=== PATIENT | female | born 1965 | race Caucasian/White ===

== ENCOUNTER 2016-11-24 05:06 | Emergency (ER) | payer MEDICARE, OTHER ==
[~2016-11-24] VITALS: Ht 157.5 cm; Wt 120.5 kg
[~2016-11-24 05:06] MED LIST: ASPI-973 PO; CHOL200047 PO; CHOL500011 PO; DICL100G30 TP; IBUP800T28 PO; IRON150C6 PO; LIDO5CRE17 TOPICAL; MELO-259 PO; MULT-666 PO; OMEP20CA11 PO; OXYC-466 PO; PRAV40TA PO; PROM25TA14 PO; RIZA10TA26 SL; UBID100C16 PO; VITA400C64 PO
[2016-11-24 05:22] VITALS: BP 182/106; PULSE 108; RESP 22; O2SAT 98
[2016-11-24] MEDS ORDERED: oxyCODONE-Acetamin 10-325 mg Tablet PO ONE (06:00)
--- NOTE | 2016-11-24 06:20 | ED.REPORT ---
HPI-General Illness Date of Service Nov 24, 2016 ED Provider: Diony Kwon MD The pt is a 51 y/o female with hx of HTN, B cell lymphoma, and chronic back pain who presents to the ED complaining of lower back pain. She reports she has been struggling with back pain since March and was enrolled in physical therapy with improvement. 2 months ago she lost her insurance and has not been able to do physical therapy since. Her pain has been getting increasingly worse since. She describes the pain as labor-like pain that radiates from her low back to the back of her knees. It is worse with movement and activity. She denies fever, focal weakness, bowel or bladder incontinence, dysuria, hematuria , or any other symptoms at this time. She does not identify a mechanism of injury. She has been taking 800mg of Ibuprofen 4-5 times a day for her pain. She has been seen by her PCP Dr. Jeff Dia 3 days ago who put her on Cyclobenzapine. She was also seen at [facility] in [place] 5 days ago where she received a CT abdomen/pelvis which revealed an ovarian cyst. During this visit she was prescribed Robaxin without relief. 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 Per the pt, her regular medication includes verapamil (180 in the morning and 120mg at night, increased 2 months ago), enalapril, pravastatin, and nepresol. She receives IVIG infusions every 21 days. She says she cannot take Tylenol because of her plaquinol medication. Nursing Notes Stated Complaint: LOW BACK/RIB PAIN Chief Complaint: General Complaint Nursing Notes Reviewed: Yes (Arden Reed not reconciled) Allergies: Coded Allergies: TAPE (Verified Allergy, Severe, SURGICAL TAPE - SKIN CANTU; tegaderm is the worst, 11/24/16) no tegaderm bupropion (Verified Allergy, Severe, psychotic reaction, 11/24/16) slurred speech simvastatin (Verified Allergy, Severe, itching, 11/24/16) Sulfa (Sulfonamide Antibiotics) (Verified Allergy, Unknown, 11/24/16) bupropion HCl (Verified Allergy, Unknown, 11/24/16) hylan G-F 20 (Verified Allergy, Unknown, INJECTIONS - SEVERE ITCHING, 11/24) prednisone (Verified Adverse Reaction, Intermediate, 11/24/16) greatly Elevates blood sugar - pt is a known type 2 diabetic taking oral medication. Uncoded Allergies: tegaderm (Allergy, Severe, removes skin, 06/13/11) Scheduled Acetaminophen (Acetaminophen) 500 Mg Capsule 1,000 MG PO TID Aspirin (Aspirin) 81 Mg Tablet Unknown Dose PO DAILY Cholecalciferol (Vitamin D3) (Vitamin D3) 2,000 Unit Capsule 2,000 UNIT PO DAILY Cholecalciferol (Vitamin D3) (Vitamin D3) 5,000 Unit Tablet 5,000 UNIT PO DAILY Diclofenac Sodium (Diclofenac Sodium) 1 % Gel..gram. 100 GM TP BID Gabapentin (Gabapentin) 300 Mg Capsule 300 MG PO TID Gabapentin (Gabapentin) 300 Mg Capsule 300 MG PO BID Take 300 mg in a.m., take 300 mg in afternoon, and continue regular dose Iron Polysaccharides Complex (Ferrex 150) 150 Mg Capsule 150 MG PO BID Lidocaine Cream (Lidocaine Cream) 5 Gm Cream..g. 1 APPLIC TOPICAL DAILY Meloxicam (Meloxicam) 7.5 Mg Tablet 7.5 MG PO BID Multivitamin (Once Daily) 1 Each Tablet 1 EACH PO DAILY Omeprazole (Omeprazole) 20 Mg Capsule.dr 20 MG PO DAILY Pravastatin (Pravastatin) 40 Mg Tablet 40 MG PO DAILY Rizatriptan (Maxalt) 10 Mg Tablet 10 MG SL PRNDAILY Vitamin E Mixed (Vitamin E) 400 Unit Capsule 400 UNIT PO DAILY Scheduled PRN Ibuprofen (Ibuprofen) 800 Mg Tablet 800 MG PO TID PRN PRN For Pain Promethazine (Promethazine) 25 Mg Tablet 25 MG PO Q6H PRN PRN For Nausea oxyCODONE (oxyCODONE) 5 Mg Tablet 5-10 MG PO TID PRN PRN For Pain oxyCODONE-Acetaminophen 10-325 mg (oxyCODONE-Acetaminophen 10-325 mg) 1 Each Tablet 1 TABLET PO Q6H PRN PRN For Pain Miscellaneous Medications Ubidecarenone (Coq-10) 100 Mg Capsule 300 MG PO General Time Seen by MD: 06:22 Chief Complaint Back pain Hx Obtained From: Patient Arrived By: Walk-in Sudden in Onset?: No Onset Occurred: More than a week ago... (>6 months) Symptom Duration: Since onset Location: : Back Quality: Painful Radiation: : Leg right Severity: Current: Severe Severity: Maximum: Severe Pertinent Negative: Pt denies other symptoms Exacerbated by: Moving affected area, Standing up Recent Healthcare: No recent hospitalization, Recent doctor visit Similar Sx Previous: Yes Past Medical History Past Medical History Notes: Oncologist: Dr. Poon Past Medical History h/o low grade Non-Hodgkkings B cell lymphoma treated by Rituxan in 2008, Bone Marrow negative for lymphoma in 02/2016 Hypogammaglobulinemia (predating Rituxan therapy) on IVIG in [place], 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 Physical Exam Vital Signs Vital Signs Date Time Temp Pulse Resp B/P Pulse Ox O2 Delivery O2 Flow Rate FiO2 11/24/16 09:44 36.8 106 18 140/92 97 Room Air 11/24/16 08:35 106 18 140/92 97 11/24/16 05:22 36.8 108 22 182/106 98 Room Air Initial VS: Reviewed, Vital signs abnormal (tachycardia, HTN) General/Constitutional: Awake, Alert Lying face down Uncomfortable Head / Eyes: Atraumatic, Normocephalic Neck: Atraumatic, Supple Respiratory / Chest: Atraumatic, Breath sounds NL, Breath sounds = bilat, No respiratory distress Cardiovascular: Heart rate NL, Regular rhythm, Heart sounds NL Upper Extremities Upper Extremity / MS: Atraumatic Lower Extremity / Pelvis / MS: Atraumatic Hard time keeping her R leg still due to discomfort Skin: Atraumatic, Color NL, No rash, Warm, Dry Neurologic: Oriented X3, Speech NL, No motor deficits, No sensory deficits, CN II - XII intact Interpretation & Diagnostics Lab Results Interpretation Test 11/24/16 06:00 Urine Color Yellow (YELLOW) Urine Appearance Cloudy (CLEAR,HAZY) Urine pH 5.5 (5.0-8.0) Urine Specific Mica 1.028 (1.003-1.035) Urine Protein Negativemg/dL (NEG,TRACE) Urine Glucose (UA) Negativemg/dL (NEGATIVE) Urine Ketones Negativemg/dL (NEGATIVE) Urine Occult Blood Negative (NEGATIVE) Urine Nitrite Negative (NEGATIVE) Urine Bilirubin Negative (NEGATIVE) Urine Urobilinogen Normalmg/dL (NORMAL) Urine Leukocyte Esterase Moderate (NEGATIVE) Urine RBC 3-10/hpf (0-2) Urine WBC 6-10/hpf (0-5) Urine Epithelial Cells Moderate/hpf (NONE-MOD) Urine Crystals None seen (NONE SEEN) Urine Bacteria Moderate/hpf (NONE-FEW) Urine Hyaline Casts None/lpf (NONE) Urine Granular Casts Rare (NONE SEEN) Urine Waxy Casts None seen (NONE SEEN) Urine Red Blood Cell Casts None seen (NONE SEEN) Urine White Blood Cell Casts Rare (NONE SEEN) Urine Mucus Present (None Seen) Urine Trichomonas None seen (NONE SEEN) Urine Yeast None (NONE SEEN) Urinalysis Comment None Urine Culture Reflexed Indicated Hold Urine Received (Received) Re-Eval/Medical Decision Med Decision/Clinical Course This is a 51F who presents compliaining of increased Back pain radiating down R leg that has been worsening since March. She reports she has been dx with sciatica and has been doing PT through her PCP but the insurance company has indicated she has completed the maximum treatments, but that she is still having pain. She reports a MRI done about 5 weeks ago in [place], where she receives her care. (She came to [facility] today as she reports the wait was "too long " at [facility].) She denies trauma, fever, new weakness, bowel or bladder changes - but complains of intractable pain. She reports she has an upcoming appointment to discuss what sounds like an epidural steroid injection On exam, the patient does appear in pain - but no focal neuroligic signs are evident. The patient has no red flags for (repeat) neuroimaging. The patient was treated symptomatically, and is improved on re-eval. The patient is very frustrated, but is ultimately improved, is ambulating without difficulty, and is discharged in much improved condition. Source of Hx: Old records Time of Eval: 09:22 Re-Evaluation/Progress Note: Rechecked pt who is feeling much better. Discussed lab results and plan for discharge with PCP f/u. Patient understands and agrees with plan. All questions addressed at this time. Differential Diagnosis: Negative: Abdominal pain, Acute coronary syndrome, Allergies, Diabetes mellitus, Drug dependence, G-tube repair/replacement, Neutropenia, Pharyngitis, acute, Pneumonia Counseled Regarding: Diagnosis, Lab results Discharge & Departure Primary Impression: Sciatica Laterality: right Qualified Code: M54.31 - Sciatica, right side Disposition: Home Discharge Condition All VS Reviewed: Yes Condition: Stable Additional Instructions: 1. Sciatica is a very frustrating and very painful condition. 2. Unfortunately there are no immediate interventions that can completely resolve symptoms. (Fortunately, symptoms do typically resolve with time - but it is not unusual for it to take a year or so to do so). 3. You will need to continue to work with your primary provider - they can help arrange a consultation for possible epidural steroid injection. (This is not something that can be done in the ED) 4. No heavy lifting, other activities as tolerated. 5. I recommend the following to try and help reduce the symptoms: - Start gabapentin 300mg three times a day - Take acetaminophen 1000mg three times a day - If needed for more severe pain take oxycodone 5mg 1-2 tabs up to three times a day. NOTE: This medication contains a narcotic and causes drowsiness. No driving for at least 4 accepted taking. Use sparingly, and as little as possible. Referrals: NOPCP (PCP) Scribe Attestation Portion of this note were transcribed by Megha Dow and Hilaria Tovar. I , Dr. Diony Kwon personally performed the history, physical exam and medical decision-making; I reviewed and confirmed the accuracy of the information in the transcribed note. Signed by: Hamzah Clay, 11/24/16. Diony Kwon MD Nov 24, 2016 06:20 Megha Dow Nov 24, 2016 06:29 HILARIA TOVAR Nov 24, 2016 08:12
[2016-11-24 06:24] LABS: APPEARANCE,URINE CLOUDY (CLEAR,HAZY); COLOR,URINE YELLOW (YELLOW); OCCULT BLOOD,URINE NEGATIVE (NEGATIVE); PH,URINE 5.5 (5.0-8.0); UROBILINOGEN,URINE NORMAL (NORMAL)
[2016-11-24] MEDS ORDERED: HYDROmorphone 1 mg/mL Inj IM ONE ×3 (06:30→09:30)
[2016-11-24] MEDS ORDERED: Ondansetron 8 mg ODT Tablet PO ONE (06:30)
[2016-11-24] MEDS ORDERED: predniSONE 20 mg Tablet PO ONE (08:15)
[2016-11-24 08:35] VITALS: BP 140/92; PULSE 106; RESP 18; O2SAT 97
[2016-11-24] MEDS ORDERED: GABA-502 PO ×2 (09:15→09:33)
[2016-11-24] MEDS ORDERED: OXYC-530 PO (09:15)
[2016-11-24] MEDS ORDERED: ACET500C49 PO (09:15)
[2016-11-24 09:44] VITALS: BP 140/92; PULSE 106; RESP 18; O2SAT 97
== END 2016-11-24 09:44 | disposition home or self-care (01) ==
LOC: SED 05:06
DX: M54.31 Sciatica, right side (principal); I10 Essential (primary) hypertension; K21.9 Gastro-esophageal reflux disease without esophagitis; F17.200 Nicotine dependence, unspecified, uncomplicated; Z85.72 Personal history of non-Hodgkin lymphomas; Z86.14 Personal history of Methicillin resistant Staphylococcus aureus infection; Z90.710 Acquired absence of both cervix and uterus; Z98.890 Other specified postprocedural states; Z79.82 Long term (current) use of aspirin; Z88.2 Allergy status to sulfonamides; Z88.8 Allergy status to other drugs, medicaments and biological substances; Z91.048 Other nonmedicinal substance allergy status
CPT/HCPCS: 81000; 81025; 87086; 87088; 96372; 99284; J1170